=== PATIENT | male | born 1955 | race African-American/Black ===

== ENCOUNTER 2021-05-02 13:28 | Outpatient (CLI) | payer MEDICARE, MEDICAID ==
[2021-05-03 14:31] LABS: SARS-CoV-2 PCR by NAA Not Detected (NotDetected)
== END 2021-05-02 13:29 | disposition home or self-care (01) ==
LOC: CSHLAB 13:28
PROVIDERS: ATTEND Radiology Radiation Oncology
DX: Z20.822 Contact with and (suspected) exposure to COVID-19 (principal)
CPT/HCPCS: U0003; U0005